=== PATIENT | female | born 1965 | race Two or more races ===

== ENCOUNTER 2016-10-11 15:07 | Emergency (ER) | payer BC ==
[~2016-10-11] VITALS: Ht 154.9 cm; Wt 85.3 kg
[2016-10-11 15:08] VITALS: BP 119/82
[2016-10-11 16:10] LABS: BASOPHILS # (AUTO) 0.1 /CMM (0.0-0.2); LYMPHOCYTES # (AUTO) 1.4 /CMM (0.8-4.8); MONOCYTES # (AUTO) 0.8 /CMM (0.1-1.30); NEUTROPHILS % (AUTO) 75.8 % (43.0-81.0); WHITE BLOOD COUNT (AUTO) 10.2 K/uL (4.3-11.0)
[2016-10-11 16:14] LABS: BASOPHILS % (AUTO) 0.6 % (0.0-2.0); DIFF TOTAL % 100 %; EOSINOPHILS # (AUTO) 0.1 /CMM (0.0-0.7); EOSINOPHILS % (AUTO) 1.4 % (0.0-6.0); HEMATOCRIT 42 % (33-45); MEAN CORPUSCULAR HEMOGLOBIN 31 PG (26.0-33.0); MEAN CORPUSCULAR HGB CONC 34 g/dl (31.0-36.0); MEAN CORPUSCULAR VOLUME 92 fL (82-100); MONOCYTES % (AUTO) 8.2 % (2.0-12.0); NEUTROPHILS # (AUTO) 7.8 /CMM (1.8-8.9); PLATELET COUNT (AUTO) 374 /CMM (150-450); RED BLOOD CELL COUNT(AUTO) 4.53 MIL/uL (4.0-5.2)
[2016-10-11] MEDS ORDERED: KETOROLAC TROMETHAMINE INJ 30 MG/ML VIAL ONE (16:14)
[2016-10-11] MEDS ORDERED: IV NS 0.9% 1,000 ML ONE (16:14)
[2016-10-11] MEDS ORDERED: IV SET PRIMARY 1 EA INFUS.SET MC ONE (16:14)
[2016-10-11 16:21] LABS: ALBUMIN 3.9 g/dL (3.4-5.0); BILIRUBIN,DIRECT 0.1 mg/dL (0.0-0.2); BILIRUBIN,TOTAL 0.4 mg/dL (0.2-1.0); CALCIUM, SERUM 8.8 mg/dL (8.5-10.1); INDIRECT BILIRUBIN 0.3 mg/dL (0.0-1.1); POTASSIUM 3.5 mmol/L (3.5-5.1); TOTAL PROTEIN, SERUM 7.7 g/dL (6.4-8.2)
[2016-10-11] MEDS ORDERED: IV NS 0.9% 1,000 ML BAG IV ONE (16:30)
[2016-10-11] MEDS ORDERED: KETOROLAC TROMETHAMINE INJ 30 MG/ML VIAL IV ONE (16:30)
[2016-10-11 17:41] LABS: KETONES,URINE NEGATIVE (NEGATIVE); LEUKOCYTE ESTERASE ,URINE TRACE (NEGATIVE)
[2016-10-11 17:47] LABS: ADD UA MICROSCOPIC YES; PREGNANCY TEST URINE QUAL NEGATIVE (NEGATIVE)
[2016-10-11 18:37] LABS: ADD URINE CULTURE NO
== END 2016-10-11 19:11 | disposition home or self-care (01) ==
LOC: ER 15:09
DX: N20.1 Calculus of ureter (principal)
CPT/HCPCS: 36415; 71010-TC; 80048-TC; 80076-TC; 81000-TC; 83690-TC; 84703-TC; 85025-TC; A4606; J1885; J7030; Z7610